=== PATIENT | female | born 1985 | race Caucasian/White ===

== ENCOUNTER → 2016-08-28 | Outpatient (REF) | payer OTHER ==
[2016-08-28 12:08] LABS: LUTEINIZING HORMONE 4.8 mIU/mL
[2016-08-28 12:09] LABS: ESTRADIOL 169.9 PG/ML; FOLLICLE STIMULATING HORMONE 2.8 mIU/mL
== END ==
LOC: M SFHCWAGY 08:57
PROVIDERS: ATTEND Nurse Practitioner Women's Health
DX: Z01.419 Encounter for gynecological examination (general) (routine) without abnormal findings (principal); Z11.4 Encounter for screening for human immunodeficiency virus [HIV]; Z11.51 Encounter for screening for human papillomavirus (HPV); N91.2 Amenorrhea, unspecified
CPT/HCPCS: 36415; 82670; 83001; 83002; 84443; 87899; G0123

== ENCOUNTER → 2016-09-12 | Outpatient (CLI) | payer OTHER ==
--- NOTE | 2016-09-12 10:10 | REP ---
Pelvic sonogram: History: Amenorrhea. The patient gives a history of cone biopsy of the cervix for cervical carcinoma. Amenorrhea since then. Pelvic pain. Findings: Transabdominal and transvaginal scanning demonstrate that the uterus is dilated with hypoechoic fluid throughout the endometrium including the cervix. Overall uterine size is 14.7 x 6.4 x 6.9 cm. Endometrial thickness is 4.5 mm not counting the endometrial fluid. Normal ovaries are seen bilaterally. Right ovary measures 2.9 x 2.0 x 3.3 cm. Left ovarian dimensions are 3.7 x 2.0 x 2.2 cm. Doppler resistive indices in the ovaries are normal bilaterally measured at 0.46 on the right and 0.48 on the left. Visualized bladder sandra are smooth. Impression: Moderate hematometra suggestive of distal cervical stenosis/occlusion. No uterine or cervical mass lesion is visible. Normal ovaries.
== END ==
LOC: M WHC 08:36
PROVIDERS: ATTEND Nurse Practitioner Women's Health
DX: N85.7 Hematometra (principal)

== ENCOUNTER 2016-10-11 13:04 | Emergency (ER) | payer OTHER ==
[~2016-10-11] VITALS: Ht 165.1 cm; Wt 95.6 kg
[~2016-10-11 13:04] MED LIST: ALEV220C2 PO
[2016-10-11 13:06] VITALS: BP 147/95
[2016-10-13] MEDS ORDERED: PERCOCET PO (18:57)
== END 2016-10-11 14:05 | disposition left against medical advice (07) ==
LOC: M ED 13:04
DX: Z53.29 Procedure and treatment not carried out because of patient's decision for other reasons (principal)

== ENCOUNTER → 2016-10-13 | Day surgery (SDC) | payer OTHER ==
[~2016-10-13] VITALS: Ht 165.1 cm; Wt 97.1 kg
[~2016-10-13] MED LIST changes: +KETOROLAC 30 MG/ML VIAL (J1885) IV SCH; +KETOROLAC 60 MG/2 ML VIAL (J1885) As Ordered ONE; +LR 1,000 ML IV ONE; +LR 1,000 ML IV SCH; +MIDAZOLAM INJ 2 MG/2 ML VIAL (J2250) As Ordered ONE; +ONDANSETRON 4MG/2ML VIAL (J2405) As Ordered ONE; +ONDANSETRON 4MG/2ML VIAL (J2405) IV PRN; +PERCOCET 5MG/325MG TAB PO PRN; +PERCOCET PO; +PROPOFOL 200 MG/20 ML VIAL As Ordered ONE; +dexameTHASONE 4 MG/ML 1ML VIAL (J1100) As Ordered ONE; +fentaNYL 100 MCG/2 ML INJECTION (J3010) As Ordered ONE
[2016-10-13 12:35] LABS: MEAN CORPUSCULAR HEMOGLOBIN 33.5 pg (27.0-33.0); MEAN CORPUSCULAR HGB CONC 34.9 g/dl (32.0-36.5); MEAN CORPUSCULAR VOLUME 96.1 fl (80.0-96.0); RED CELL DISTRIBUTION WIDTH 12.1 % (11.5-14.5); WHITE BLOOD COUNT 7.7 K/mm3 (4.0-10.0)
[2016-10-13 12:53] LABS: CONTROL LINE HCG INT CTR LINE PRESENT
[2016-10-13] MEDS: fentaNYL 100 MCG/2 ML INJECTION (J3010) IV PRN ×4 (15:22→15:37)
[2016-10-13 16:35] VITALS: BP 120/66
--- NOTE | 2016-10-13 19:34 | RO ---
DATE OF PROCEDURE: 10/13/2016 PREPROCEDURE DIAGNOSES: 1. Amenorrhea. 2. Hematometra POSTPROCEDURE DIAGNOSES: 1. Hematometra. 2. Stenotic cervical os. OPERATIVE PROCEDURE: Evacuation of hematometra with dilation and hystereoscopy. SURGEON: Adriana Tovar MD PARK NATURALIST: None. ANESTHESIA: General. Laryngeal mask airway. ESTIMATED BLOOD LOSS: 500 mL. INTRAVENOUS FLUIDS: 1 liter of lactated Ringers solution. SPECIMENS: None. OPERATIVE FINDINGS: Patient with completely stenotic cervix with no visible location of the cervical os. Cervix was bulging with a purplish hue and upon evacuation of hematometra, approximately 500 to 600 mL of bloodish fluid. DESCRIPTION OF OPERATION: After informed consent was obtained and written consent was reviewed, the patient was brought to the operating room where laryngeal mask airway was then obtained. She was placed in a lithotomy position, was prepped and draped in a normal sterile fashion. A time out in the operating room was performed identifying the patient, the procedure to be performed as well as drug allergies. A bivalved speculum was then placed revealing the stenotic cervix visualization. There was no point of entry in the cervical os and there was a bulging of the cervix with a bluish purplish hue. An incision was then made using a 15 blade in this area and a small crescent aspect with a large gush of blood approximately 500 mL. The uterus was further evacuated of the blood. I then sounded the uterus to approximately 10 cm. Hysteroscope was then advanced. Endometrial cavity was surveyed with only a thickened endometrium appreciated. Hysteroscope was then removed as well as the instruments and bivalved speculum. The patient was then taken out of lithotomy position, was awakened from general anesthesia and taken to recovery in stable condition. Counts were correct. MTDD
== END ==
LOC: M SDC 11:57
PROVIDERS: ATTEND Obstetrics & Gynecology
DX: N85.7 Hematometra (principal); M54.5 Low back pain; F41.9 Anxiety disorder, unspecified; F17.210 Nicotine dependence, cigarettes, uncomplicated
CPT/HCPCS: 36415; 58558; 84703; 85027; 86850; 86900; 86901; J1100; J1885; J2250; J2405; J3010

== ENCOUNTER → 2017-05-12 | Outpatient (REF) | payer OTHER ==
[2017-05-14 14:11] LABS: HPV HYBRID CAPTURE II Negative (Negative)
== END ==
LOC: M SFHCWAGY 14:47
DX: D06.9 Carcinoma in situ of cervix, unspecified (principal)

== ENCOUNTER → 2018-06-10 | Outpatient (REF) | payer BC ==
[~2018-06-10] MED LIST changes: -KETOROLAC 30 MG/ML VIAL (J1885) IV SCH; -KETOROLAC 60 MG/2 ML VIAL (J1885) As Ordered ONE; -LR 1,000 ML IV ONE; -LR 1,000 ML IV SCH; -MIDAZOLAM INJ 2 MG/2 ML VIAL (J2250) As Ordered ONE; -ONDANSETRON 4MG/2ML VIAL (J2405) As Ordered ONE; -ONDANSETRON 4MG/2ML VIAL (J2405) IV PRN; -PERCOCET 5MG/325MG TAB PO PRN; -PROPOFOL 200 MG/20 ML VIAL As Ordered ONE; -dexameTHASONE 4 MG/ML 1ML VIAL (J1100) As Ordered ONE; -fentaNYL 100 MCG/2 ML INJECTION (J3010) As Ordered ONE
[2018-06-10 19:03] LABS: APPEARANCE, URINE CLEAR (CLEAR); BACTERIA, URINE AUTO NEGATIVE (NEGATIVE); BILIRUBIN, URINE AUTO NEGATIVE (NEGATIVE); BLOOD, URINE BLOOD NEGATIVE (NEGATIVE); COLOR, URINE YELLOW (YELLOW); GLUCOSE, URINE (UA) AUTO NEGATIVE (NEGATIVE); KETONE, URINE AUTO NEGATIVE (NEGATIVE); LEUKOCYTE ESTERASE, URINE AUTO NEGATIVE (NEGATIVE); NITRITE, URINE AUTO NEGATIVE (NEGATIVE); PROTEIN, URINE AUTO NEGATIVE (NEGATIVE); RBC, URINE AUTO 4 /HPF (0-3); SPECIFIC GRAVITY URINE AUTO 1.016 (1.002-1.035); SQUAMOUS EPITHELIAL CELL UR AU 0 /HPF (0-6); WBC, URINE AUTO 0 /HPF (0-3)
== END ==
LOC: M SFHCPLAZ 16:55
PROVIDERS: ATTEND Nurse Practitioner Family
DX: R35.0 Frequency of micturition (principal)

== ENCOUNTER → 2020-12-11 | Outpatient (REF) | payer BC ==
[2020-12-11 18:31] LABS: HEMATOCRIT 41.4 % (36.0-47.0); HEMOGLOBIN 14.2 g/dl (12.0-15.5); MEAN CORPUSCULAR HEMOGLOBIN 32.2 pg (27.0-33.0); MEAN CORPUSCULAR HGB CONC 34.3 g/dl (32.0-36.5); MEAN CORPUSCULAR VOLUME 93.9 fl (80.0-96.0); PLATELET COUNT, AUTOMATED 246 10^3/uL (150-450); RED BLOOD COUNT 4.41 10^6/uL (4.00-5.40)
[2020-12-11 19:04] LABS: HCG, SERUM QUANTITATIVE 22163 MIU/ML
[2020-12-11 19:09] LABS: HEPATITIS B SURFACE ANTIGEN NEGATIVE (NEGATIVE)
[2020-12-11 19:38] LABS: HIV 1&2 SCREEN CENTAUR NEGATIVE (NEGATIVE)
[2020-12-12 10:20] LABS: HEPATITIS C VIRUS ABY INDEX < 0.0 INDEX (<0.8)
== END ==
LOC: M LAB REF 16:45
PROVIDERS: ATTEND Obstetrics & Gynecology
DX: Z32.01 Encounter for pregnancy test, result positive (principal); O36.80X0 Pregnancy with inconclusive fetal viability, not applicable or unspecified

== ENCOUNTER → 2021-02-08 | Outpatient (CLI) | payer BC ==
--- NOTE | 2021-02-08 12:14 | REP ---
INDICATION: PREG, TREATENED AB. COMPARISON: None. TECHNIQUE: Transabdominal imaging performed. FINDINGS: Scanning demonstrates a living single intrauterine gestation in a variable lie. motion is observed and heart rate is recorded at 152 beats per minute. An posterior, grade zero placenta is seen. There is a partial placenta previa. Amniotic fluid is subjectively normal. Closed cervical length is measured at 4.9 cm cm transabdominally with no funneling. No extrauterine abnormality is observed on these images. No screening is performed due to gestational age. Biometry chart: BPD 3.3 cm; 16 weeks 1 days Head circumference 11.9 cm; 15 weeks 6 days Abdominal circumference 10.3 cm; 16 weeks 2 days Femur length 2.0 cm; 16 weeks 0 days Humeral length 1.8 cm; 15 weeks 1 days HC/AC ratio normal 1.15 Cephalic index normal 0.77 Estimated weight 147 grams. Markers for chromosomal abnormality: Measured FL/expected = 1.01 (normal) Measured HL/expected = 0.89 (increased risk) IMPRESSION: Living single intrauterine gestation at 15 weeks 6 days by today's composite sonographic criteria. Expected gestational age estimate based on LMP is 15 weeks is 1 days. FABIANA by LMP 08/01/2021. No no anatomy screen performed because of the early gestational age. Posterior grade 0 placenta with partial previa evident. Technologist notes that the patient declined endovaginal imaging at this time. <Electronically signed by Immanuel Dorman > 02/08/21 [id number]
== END ==
LOC: M RAD 10:51
PROVIDERS: ATTEND Advanced Practice Midwife
DX: O20.0 Threatened abortion (principal)

== ENCOUNTER → 2021-03-15 | Outpatient (CLI) | payer BC ==
--- NOTE | 2021-03-17 17:50 | REP ---
INDICATION: ANATOMY COMPARISON: 02/08/2021 TECHNIQUE: Transabdominal obstetrical ultrasound with color Doppler evaluation. FINDINGS: Examination demonstrates a single live intrauterine in variable presentation. motion is identified by technologist. Placenta is noted posterior and grade 0 without evidence for placenta previa or abruption. Amniotic fluid volume is normal. Cervix measures 4.3 cm in length and appears closed.. Selected gestational age: 20 weeks 4 days with FABIANA 07/29/2021. Gestational age by current measurements 20 weeks 3 days with FABIANA 07/30/2021. FHR equals 150 beats per minute. BPD: 4.7 cm; 20 weeks 0 days; 36% HC: 17.8 cm; 20 weeks 2 days; 42% AC: 14.8 cm; 20 weeks 1 day; 40% FL: 3.3 cm; 20 weeks 2 days; 43% HL: 3.3 cm; 21 weeks 1 day; 59% HC/AC: 1.20 Estimated weight 338 grams (26thpercentile). Anatomical assessment demonstrates normal structures including cranium, choroid plexus, cavum, cerebellum/posterior fossa, facial features, lungs, four-chamber heart/ventricular outflow tracts, diaphragm, stomach, cord insertion/three-vessel cord, kidneys/bladder, spine, and extremities. Limited evaluation of the facial profile due to positioning. IMPRESSION: 1. Single live intrauterine in variable presentation. 2. Limited evaluation of the facial profile may warrant re-evaluation. Remainder of the anatomical assessment is complete and normal. <Electronically signed by David Gonzalez > 03/17/21 [id number]
== END ==
LOC: M WHC 09:16
PROVIDERS: ATTEND Advanced Practice Midwife
DX: O99.332 Smoking (tobacco) complicating pregnancy, second trimester (principal); Z3A.20 20 weeks gestation of pregnancy

== ENCOUNTER → 2021-04-11 | Outpatient (CLI) | payer BC | LOC: M WHC 12:01 | PROVIDERS: ATTEND Advanced Practice Midwife | DX: O09.522 Supervision of elderly multigravida, second trimester (principal) ==

== ENCOUNTER → 2021-05-10 | Outpatient (CLI) | payer BC | LOC: M LAB 08:11 | PROVIDERS: ATTEND Advanced Practice Midwife | DX: O99.810 Abnormal glucose complicating pregnancy (principal) ==

== ENCOUNTER → 2021-06-06 | Outpatient (CLI) | payer BC ==
[~2021-06-06] MED LIST changes: +ACET500P3 PO; +COLA100C5 PO; +IBUP80TA PO; +OMEP-173; +OXYC1TAB23 PO; +PREN1CHW6 PO; +PSEU120T3 PO; +TUMS500C PO
== END ==
LOC: M WHC 12:01
PROVIDERS: ATTEND Advanced Practice Midwife
DX: O24.419 Gestational diabetes mellitus in pregnancy, unspecified control (principal); Z3A.33 33 weeks gestation of pregnancy

== ENCOUNTER → 2021-06-28 | Outpatient (REF) | payer BC ==
[~2021-06-28] MED LIST changes: -ACET500P3 PO; -COLA100C5 PO; -IBUP80TA PO; -OMEP-173; -OXYC1TAB23 PO; -PREN1CHW6 PO; -PSEU120T3 PO; -TUMS500C PO
== END ==
LOC: M SFHCWAGY 10:03
PROVIDERS: ATTEND Obstetrics & Gynecology
DX: Z36.89 Encounter for other specified antenatal screening (principal); Z3A.35 35 weeks gestation of pregnancy

== ENCOUNTER → 2021-07-04 | Outpatient (CLI) | payer BC ==
[~2021-07-04] MED LIST changes: +ACET500P3 PO; +COLA100C5 PO; +IBUP80TA PO; +OMEP-173; +OXYC1TAB23 PO; +PREN1CHW6 PO; +PSEU120T3 PO; +TUMS500C PO
== END ==
LOC: M WHC 12:03
PROVIDERS: ATTEND Advanced Practice Midwife
DX: O24.419 Gestational diabetes mellitus in pregnancy, unspecified control (principal); Z36.2 Encounter for other antenatal screening follow-up; Z3A.36 36 weeks gestation of pregnancy

== ENCOUNTER → 2021-07-17 | Outpatient (CLI) | payer BC ==
[~2021-07-17] MED LIST changes: -ACET500P3 PO; -IBUP80TA PO; -OXYC1TAB23 PO; -PREN1CHW6 PO; -PSEU120T3 PO; -TUMS500C PO
== END ==
LOC: M LABSMTC 09:53
PROVIDERS: ATTEND Anesthesiology
DX: Z01.818 Encounter for other preprocedural examination (principal)

== ENCOUNTER 2021-07-22 07:30 | Inpatient (IN) | payer BC ==
[~2021-07-22] VITALS: Ht 165.1 cm; Wt 92.3 kg
[2021-07-25] MEDS ORDERED: ACET500P3 PO (14:22)
[2021-07-25] MEDS ORDERED: PREN1CHW6 PO (14:22)
[2021-07-25] MEDS ORDERED: PSEU120T3 PO (14:22)
[2021-07-25] MEDS ORDERED: TUMS500C PO (14:23)
[2021-07-30] VITALS (9 sets, daily range): BP systolic 110–147; BP diastolic 67–89
[2021-07-30] MEDS ORDERED: LR 800 ML IV ONE (06:30)
[2021-07-30] MEDS ORDERED: ceFAZolin SOD 2 GM in IV 1 EA IV ONE (06:30)
[2021-07-30] MEDS ORDERED: BICITRA 30ML SOLN UDC PO ONE (06:45)
[2021-07-30 07:02] LABS: HEMATOCRIT 38.2 % (36.0-47.0); HEMOGLOBIN 13.8 g/dl (12.0-15.5); MEAN CORPUSCULAR HGB CONC 36.1 g/dl (32.0-36.5); MEAN CORPUSCULAR VOLUME 94.1 fl (80.0-96.0); PLATELET COUNT, AUTOMATED 182 10^3/uL (150-450); RED BLOOD COUNT 4.06 10^6/uL (4.00-5.40); WHITE BLOOD COUNT 9.6 10^3/uL (4.0-10.0)
[2021-07-30] MEDS ORDERED: LR 1,000 ML IV SCH ×3 (07:15→09:30)
[2021-07-30] MEDS ORDERED: METOCLOPRAMIDE INJ 10MG/2ML VIAL (J2765 PER 1) IV PRN (07:57)
[2021-07-30] MEDS ORDERED: diphenhydrAMINE 50MG/ML VIAL (J1200) IV PRN (07:57)
[2021-07-30] MEDS ORDERED: NALOXONE INJ 0.4MG/1ML VIAL (J2310 PER 1MG) IV PRN ×2 (07:57)
[2021-07-30] MEDS ORDERED: ONDANSETRON 4MG/2ML VIAL IV PRN ×2 (07:57→09:30)
[2021-07-30] MEDS ORDERED: MORPHINE PRES-FREE INJ 10 MG/10 ML VIAL As Ordered ONE (08:08)
[2021-07-30] MEDS ORDERED: OXYTOCIN INJ 10 UNITS/ML VIAL (J2590) As Ordered ONE (08:08)
[2021-07-30] MEDS ORDERED: PHENYLephrine 500MCG 5ML (100MCG/ML) SYRINGE As Ordered ONE (08:08)
[2021-07-30] MEDS ORDERED: KETOROLAC 60MG 2ML VIAL As Ordered ONE (08:32)
[2021-07-30] MEDS ORDERED: SIMETHICONE 80MG CHEW TAB PO PRN (09:05)
[2021-07-30] MEDS ORDERED: OXYTOCIN DRIP 30 UNITS in IV 1 EA IV SCH (09:05)
[2021-07-30] MEDS ORDERED: RHOGAM 300 MCG (1500 IU) INJ (J2790) IM SCH (09:05)
[2021-07-30] MEDS ORDERED: MEASLES,MUMPS,RUBELLA VACCINE INJ (MMR-II) (90707) SC SCH (09:05)
[2021-07-30] MEDS ORDERED: DOCUSATE SODIUM 100MG CAPSULE PO PRN (09:05)
[2021-07-30] MEDS ORDERED: OXYTOCIN 30 UNITS IN 0.9% NaCl 500ML IV BAG (J2590) As Ordered ONE (09:18)
[2021-07-30] MEDS ORDERED: oxyCODONE 5MG TAB PO PRN (09:30)
[2021-07-30] MEDS ORDERED: fentaNYL 100 MCG/2 ML INJECTION IV PRN (09:30)
[2021-07-30] MEDS: KETOROLAC 30 MG/ML 1ML VIAL IV SCH ×2 (14:25→20:30)
[2021-07-30] MEDS ORDERED: LR 500 ML IV ONE (18:30)
[2021-07-31 02:00] VITALS: BP 116/68
[2021-07-31] MEDS: KETOROLAC 30 MG/ML 1ML VIAL IV SCH (03:16)
[2021-07-31 06:00] VITALS: BP 125/68
[2021-07-31 07:16] LABS: HEMATOCRIT 32.1 % (36.0-47.0); MEAN CORPUSCULAR HEMOGLOBIN 33.4 pg (27.0-33.0); MEAN CORPUSCULAR HGB CONC 34.9 g/dl (32.0-36.5); MEAN CORPUSCULAR VOLUME 95.8 fl (80.0-96.0); PLATELET COUNT, AUTOMATED 133 10^3/uL (150-450); RED BLOOD COUNT 3.35 10^6/uL (4.00-5.40); WHITE BLOOD COUNT 7.6 10^3/uL (4.0-10.0)
[2021-07-31 07:23] LABS: HEMOGLOBIN 11.2 g/dl (12.0-15.5)
[2021-07-31] MEDS: PRENATAL VITAMINS CHEWABLE TABLET PO SCH (08:46)
[2021-07-31] MEDS: PERCOCET 5MG/325MG TAB PO PRN ×3 (08:47→19:51)
[2021-07-31 10:00] VITALS: BP 129/72
[2021-07-31] MEDS: IBUPROFEN 800 MG TAB PO SCH ×2 (10:38→18:03)
[2021-07-31 14:00] VITALS: BP 121/68
[2021-07-31 18:00] VITALS: BP 121/76
[2021-07-31 22:00] VITALS: BP 125/82
[2021-08-01] MEDS: PERCOCET 5MG/325MG TAB PO PRN ×3 (01:59→14:44)
[2021-08-01 02:00] VITALS: BP 136/81
[2021-08-01] MEDS: IBUPROFEN 800 MG TAB PO SCH ×2 (02:00→08:35)
[2021-08-01 06:00] VITALS: BP 137/74
[2021-08-01] MEDS: PRENATAL VITAMINS CHEWABLE TABLET PO SCH (08:34)
[2021-08-01 10:00] VITALS: BP 146/82
[2021-08-01] MEDS ORDERED: IBUP80TA PO (10:22)
[2021-08-01] MEDS ORDERED: OXYC1TAB23 PO (10:22)
== END 2021-08-01 14:57 | disposition home or self-care (01) | DRG 540 ==
LOC: M LDI 07-30 05:43 → M OBS 07-30 10:53
PROVIDERS: ADMIT Specialist; ATTEND Specialist
PROC: 0UB70ZZ Excision of Bilateral Fallopian Tubes, Open Approach (ICD-10-PCS; 2021-07-30)
PROC: 10D00Z1 Extraction of Products of Conception, Low, Open Approach (ICD-10-PCS; principal; 2021-07-30 07:30)
DX: O32.1XX0 Maternal care for breech presentation, not applicable or unspecified (principal); Z30.2 Encounter for sterilization; Z3A.40 40 weeks gestation of pregnancy; Z37.0 Single live birth

== ENCOUNTER 2021-07-25 13:54 | Outpatient (CLI) | payer BC ==
[~2021-07-25] VITALS: Ht 165.1 cm; Wt 96.2 kg
[2021-07-25 14:18] VITALS: BP 123/77
[2021-07-25] MEDS ORDERED: PSEU120T3 PO (14:22)
[2021-07-25] MEDS ORDERED: PREN1CHW6 PO (14:22)
[2021-07-25] MEDS ORDERED: ACET500P3 PO (14:22)
[2021-07-25] MEDS ORDERED: TUMS500C PO (14:23)
[2021-07-25] MEDS ORDERED: HOME MED LIST COMPLETE! XX SCH (14:25)
[2021-07-25 16:18] VITALS: BP 124/79
== END 2021-07-25 17:00 | disposition home or self-care (01) ==
LOC: M LDO 13:54
PROVIDERS: ATTEND Obstetrics & Gynecology
DX: O98.52 Other viral diseases complicating childbirth (principal); U07.1 COVID-19; O32.1XX9 Maternal care for breech presentation, other fetus; O09.513 Supervision of elderly primigravida, third trimester; Z3A.39 39 weeks gestation of pregnancy
CPT/HCPCS: 59025; G0463

== ENCOUNTER → 2022-11-06 | Outpatient (REF) | payer BC ==
[~2022-11-06] MED LIST changes: +ACET500P3 PO; +IBUP80TA PO; +OXYC1TAB23 PO; +PREN1CHW6 PO; +PSEU120T3 PO; +TUMS500C PO
== END ==
LOC: M SFHCWAGY 13:16
PROVIDERS: ATTEND Nurse Practitioner Family
DX: Z12.4 Encounter for screening for malignant neoplasm of cervix (principal)

== ENCOUNTER → 2023-01-30 | Outpatient (CLI) | payer BC | LOC: M SOG 07:49 | PROVIDERS: ATTEND Orthopaedic Surgery | DX: M51.37 Other intervertebral disc degeneration, lumbosacral region (principal) ==

== ENCOUNTER → 2024-01-19 | Outpatient (CLI) | payer BC ==
[2024-01-19 17:20] LABS: PLATELET COUNT, AUTOMATED 248 10^3/uL (150-450)
[2024-01-19 17:33] LABS: PROTHROMBIN TIME 12.9 SECONDS (12.5-14.5)
== END ==
LOC: M PLALAB 14:29
PROVIDERS: ATTEND Physician Assistant
DX: Z01.818 Encounter for other preprocedural examination (principal)

== ENCOUNTER → 2024-01-19 | Outpatient (CLI) | payer BC ==
[2024-01-19 17:44] LABS: HEMOGLOBIN A1c 5.7 % (4.0-6.0)
[2024-01-19 17:59] LABS: FREE T4 1.12 NG/DL (0.89-1.76)
[2024-01-19 18:00] LABS: PROLACTIN 4.04 NG/ML; THYROID STIMULATING HORMONE 1.247 uIU/ML (0.55-4.78)
[2024-01-19 18:01] LABS: CORTISOL PM 5.9 UG/DL (3.1-16.7)
== END ==
LOC: M PLALAB 14:25
PROVIDERS: ATTEND Nurse Practitioner Family
DX: L68.0 Hirsutism (principal)

== ENCOUNTER → 2024-08-22 | Outpatient (REF) | payer BC ==
[2024-08-23 10:45] LABS: APPEARANCE, URINE HAZY (CLEAR); BACTERIA, URINE AUTO 3+ (NEGATIVE); BILIRUBIN, URINE AUTO NEGATIVE (NEGATIVE); BLOOD, URINE BLOOD 3+ (NEGATIVE); COLOR, URINE YELLOW (YELLOW); GLUCOSE, URINE (UA) AUTO NEGATIVE (NEGATIVE); KETONE, URINE AUTO TRACE mg/dL (NEGATIVE); LEUKOCYTE ESTERASE, URINE AUTO NEGATIVE (NEGATIVE); NITRITE, URINE AUTO NEGATIVE (NEGATIVE); PROTEIN, URINE AUTO NEGATIVE (NEGATIVE); RBC, URINE AUTO 21 /HPF (0-3); SPECIFIC GRAVITY URINE AUTO 1.008 (1.002-1.035); SQUAMOUS EPITHELIAL CELL UR AU 1 /HPF (0-6); UROBILINOGEN, URINE AUTO 0.2 mg/dL (0.0-2.0); WBC, URINE AUTO 0 /HPF (0-3)
== END ==
LOC: M LAB REF 10:05
PROVIDERS: ATTEND Physician Assistant Medical
DX: N39.0 Urinary tract infection, site not specified (principal)

== ENCOUNTER 2024-10-20 16:00 | Emergency (ER) | payer BC ==
[~2024-10-20] VITALS: Ht 165.1 cm; Wt 84.1 kg
[2024-10-20 16:47] LABS: BASO # 0.1 10^3/uL (0.0-0.2); BASO % 0.5 % (0.0-1.0); EOS # 0.1 10^3/uL (0.0-0.5); EOS % 0.5 % (0.0-3.0); LYMPH # 1.6 10^3/uL (1.5-5.0); LYMPH % 15.6 % (24.0-44.0); MONO # 0.6 10^3/uL (0.0-0.8); MONO % 6.2 % (2.0-8.0); NEUTROPHILS # 7.7 10^3/uL (1.5-8.5); NEUTROPHILS % 76.9 % (36.0-66.0); PLATELET COUNT, AUTOMATED 248 10^3/uL (150-450)
[2024-10-20 16:51] LABS: ERYTHROCYTE SEDIMENTATION RATE 7 mm/hr (0-20)
[2024-10-20] MEDS: KETOROLAC 30 MG/ML 1 ML VIAL IV ONE (16:51)
[2024-10-20 17:16] LABS: ALT/SGPT 17 U/L (7.0-40); AST/SGOT 15 U/L (<34); C REACTIVE PROTEIN QUANTITATIV < 0.50 MG/DL (<1.0); CALCIUM LEVEL 8.8 MG/DL (8.5-10.1); CARBON DIOXIDE LEVEL 22 MMOL/L (20-31); CHLORIDE LEVEL 111 MMOL/L (98-107); CREATININE FOR GFR 0.65 MG/DL (0.55-1.30); GLOMERULAR FILTRATION RATE > 90.0 (>58); POTASSIUM SERUM 3.8 MMOL/L (3.5-5.1); SODIUM LEVEL 143 MMOL/L (136-145)
[2024-10-20] MEDS: MORPHINE 4 MG/ML 1 ML VIAL IV ONE (17:26)
[2024-10-20] MEDS: LIDOCAINE 2% 5 ML JELLY UROJET TOP ONE (19:20)
[2024-10-20 20:06] LABS: KETONE, URINE AUTO RFX 1+ mg/dL (NEGATIVE); LEUKOCYTE ESTERASE UR AUTO RFX NEGATIVE (NEGATIVE); MUCUS, URINE RFX SMALL (NEGATIVE); NITRITE, URINE AUTO RFX NEGATIVE (NEGATIVE); RBC, URINE AUTO RFX 58 /HPF (0-3); SQUAM EPITHELIAL CELL UR AURFX 0 /HPF (0-6); WBC, URINE AUTO RFX 1 /HPF (0-3)
[2024-10-21] MEDS: HYDROmorphone 2 MG TAB PO ONE (02:05)
[2024-10-21] MEDS: HYDROMORPHONE HCL 0.5 MG/0.5 ML SYRINGE IV PRN (02:32)
[2024-10-21] MEDS: HYDROMORPHONE HCL 0.5 MG/0.5 ML SYRINGE IV STA (05:50)
[2024-10-21 08:07] VITALS: BP 134/63; TEMP 97; O2SAT 98
== END 2024-10-21 07:52 | disposition short-term general hospital (02) ==
LOC: EDBD 16:00 → M ED 16:00
DX: M54.50 Low back pain, unspecified (principal); Z79.1 Long term (current) use of non-steroidal anti-inflammatories (NSAID); Z79.899 Other long term (current) drug therapy; Z79.810 Long term (current) use of selective estrogen receptor modulators (SERMs)
CPT/HCPCS: 51702; 72131; 74176; 80053; 81001; 85025; 85652; 86140; 96374; 96375; 96376; 99285; J1171; J1885; J2060; J3010; J3360

== ENCOUNTER → 2024-10-27 | Outpatient (REF) | payer BC ==
[2024-10-27 18:12] LABS: APPEARANCE, URINE CLOUDY (CLEAR); BACTERIA, URINE AUTO 1+ (NEGATIVE); BILIRUBIN, URINE AUTO NEGATIVE (NEGATIVE); BLOOD, URINE BLOOD 2+ (NEGATIVE); GLUCOSE, URINE (UA) AUTO NEGATIVE (NEGATIVE); KETONE, URINE AUTO 1+ mg/dL (NEGATIVE); LEUKOCYTE ESTERASE, URINE AUTO TRACE (NEGATIVE); MUCUS, URINE MODERATE (NEGATIVE); NITRITE, URINE AUTO NEGATIVE (NEGATIVE); PROTEIN, URINE AUTO 1+ mg/dL (NEGATIVE); RBC, URINE AUTO 2 /HPF (0-3); SPECIFIC GRAVITY URINE AUTO 1.024 (1.002-1.035); SQUAMOUS EPITHELIAL CELL UR AU 5 /HPF (0-6); UROBILINOGEN, URINE AUTO 0.2 mg/dL (0.0-2.0); WBC, URINE AUTO 18 /HPF (0-3)
== END ==
LOC: M SMT 17:21
PROVIDERS: ATTEND Nurse Practitioner Family
DX: R31.29 Other microscopic hematuria (principal)

== ENCOUNTER → 2024-12-02 | Outpatient (REF) | payer BC ==
[2024-12-02 17:18] LABS: APPEARANCE, URINE CLEAR (CLEAR); BACTERIA, URINE AUTO NEGATIVE (NEGATIVE); BILIRUBIN, URINE AUTO NEGATIVE (NEGATIVE); BLOOD, URINE BLOOD NEGATIVE (NEGATIVE); GLUCOSE, URINE (UA) AUTO NEGATIVE (NEGATIVE); KETONE, URINE AUTO NEGATIVE (NEGATIVE); LEUKOCYTE ESTERASE, URINE AUTO TRACE (NEGATIVE); MUCUS, URINE SMALL (NEGATIVE); NITRITE, URINE AUTO NEGATIVE (NEGATIVE); PROTEIN, URINE AUTO NEGATIVE (NEGATIVE); RBC, URINE AUTO 0 /HPF (0-3); SPECIFIC GRAVITY URINE AUTO 1.006 (1.002-1.035); SQUAMOUS EPITHELIAL CELL UR AU 0 /HPF (0-6); UROBILINOGEN, URINE AUTO 0.2 mg/dL (0.0-2.0); WBC, URINE AUTO 22 /HPF (0-3)
== END ==
LOC: M SMT 16:54
PROVIDERS: ATTEND Nurse Practitioner Family
DX: R33.9 Retention of urine, unspecified (principal)

== ENCOUNTER → 2024-12-19 | Outpatient (REF) | payer BC ==
[2024-12-19 13:06] LABS: C REACTIVE PROTEIN QUANTITATIV < 0.50 MG/DL (<1.0)
[2024-12-19 13:07] LABS: ALT/SGPT 15 U/L (7.0-40); AST/SGOT 13 U/L (<34); BASO # 0.1 10^3/uL (0.0-0.2); BASO % 0.9 % (0.0-1.0); CALCIUM LEVEL 8.5 MG/DL (8.5-10.1); CARBON DIOXIDE LEVEL 28 MMOL/L (20-31); CHLORIDE LEVEL 105 MMOL/L (98-107); CREATININE FOR GFR 0.75 MG/DL (0.55-1.30); EOS # 0.1 10^3/uL (0.0-0.5); EOS % 2.2 % (0.0-3.0); GLOMERULAR FILTRATION RATE > 90.0 (>58); LYMPH # 1.6 10^3/uL (1.5-5.0); LYMPH % 24.6 % (24.0-44.0); MONO # 0.5 10^3/uL (0.0-0.8); MONO % 7.1 % (2.0-8.0); NEUTROPHILS # 4.2 10^3/uL (1.5-8.5); NEUTROPHILS % 64.9 % (36.0-66.0); PLATELET COUNT, AUTOMATED 261 10^3/uL (150-450); POTASSIUM SERUM 3.4 MMOL/L (3.5-5.1); RHEUMATOID FACTOR QUANT < 3.5 IU/ML (<14); SODIUM LEVEL 141 MMOL/L (136-145)
[2024-12-19 13:13] LABS: ERYTHROCYTE SEDIMENTATION RATE 17 mm/hr (0-20)
== END ==
LOC: M LAB REF 11:48
PROVIDERS: ATTEND Nurse Practitioner Family
DX: M25.50 Pain in unspecified joint (principal); R53.83 Other fatigue

== ENCOUNTER → 2024-12-30 | Outpatient (REF) | payer BC ==
[2024-12-30 16:15] LABS: APPEARANCE, URINE CLEAR (CLEAR); BACTERIA, URINE AUTO 1+ (NEGATIVE); BILIRUBIN, URINE AUTO NEGATIVE (NEGATIVE); BLOOD, URINE BLOOD NEGATIVE (NEGATIVE); GLUCOSE, URINE (UA) AUTO NEGATIVE (NEGATIVE); KETONE, URINE AUTO NEGATIVE (NEGATIVE); LEUKOCYTE ESTERASE, URINE AUTO 3+ (NEGATIVE); MUCUS, URINE SMALL (NEGATIVE); NITRITE, URINE AUTO NEGATIVE (NEGATIVE); PROTEIN, URINE AUTO NEGATIVE (NEGATIVE); RBC, URINE AUTO 1 /HPF (0-3); SPECIFIC GRAVITY URINE AUTO 1.005 (1.002-1.035); SQUAMOUS EPITHELIAL CELL UR AU 1 /HPF (0-6); UROBILINOGEN, URINE AUTO 0.2 mg/dL (0.0-2.0); WBC, URINE AUTO 16 /HPF (0-3)
== END ==
LOC: M SMT 15:19
PROVIDERS: ATTEND Nurse Practitioner Family
DX: R33.9 Retention of urine, unspecified (principal)

== ENCOUNTER → 2025-01-02 | Outpatient (REF) | payer BC | LOC: M SFHCWAGY 16:41 | PROVIDERS: ATTEND Nurse Practitioner Family | DX: N73.9 Female pelvic inflammatory disease, unspecified (principal) ==

== ENCOUNTER → 2025-01-23 | Outpatient (CLI) | payer BC | LOC: M RAD 11:24 | PROVIDERS: ATTEND Nurse Practitioner Family | DX: R22.42 Localized swelling, mass and lump, left lower limb (principal) ==

== ENCOUNTER → 2025-01-23 | Outpatient (CLI) | payer BC | LOC: M RAD 11:25 | PROVIDERS: ATTEND Neurological Surgery | DX: M51.26 Other intervertebral disc displacement, lumbar region (principal); M47.816 Spondylosis without myelopathy or radiculopathy, lumbar region; M48.061 Spinal stenosis, lumbar region without neurogenic claudication ==